=== PATIENT | male | born 1990 | race African-American/Black ===

== ENCOUNTER 2017-02-25 09:32 | Emergency (ER) | payer MEDICAID ==
[~2017-02-25] VITALS: Ht 185.4 cm; Wt 75.0 kg
[~2017-02-25 09:32] MED LIST: MOBI15TA PO
[2017-02-25 09:37] VITALS: BP 134/73; PULSE 75; RESP 14; TEMP 98.3; O2SAT 100
[2017-02-25] MEDS ORDERED: ACYC200C66 PO (10:30)
--- NOTE | 2017-02-25 10:30 | PD ---
HPI Chief Complaint: Complaint Time Seen by Provider: 10:25 Travel History International Travel<30 days: No Contact w/Intl Traveler<30days: No Traveled to known affect area: No History of Present Illness HPI 26-year-old male presents to the emergency Department with complaint of a blister appearing bump to his penis that he noticed yesterday. Denies penile drainage, testicular or penile pain or swelling. Reports pain to the area of the lesion. Denies dysuria, urgency, frequency. Denies abdominal pain, nausea , vomiting, fever. No known exposure to STDs or STI's. Engages in unprotected sexual intercourse. Has not taken any medications or tried any treatments to relieve the symptoms. No known allergies. Has no other medical complaints. No other modifying factors or associated signs and symptoms. PFSH Past Medical History Hx Anticoagulant Therapy: No Cardiovascular Problems: No Chemotherapy: No Cerebrovascular Accident: No Diabetes: No Patient Takes Glucophage: No Diminished Hearing: No Headaches: Yes Kidney Stones: Yes Medical other: Yes (bronchitis) Immunizations Current: No Tetanus Vaccination: < 5 Years ?: Not Past Surgical History Surgical History: No Previous Surgery Hysterectomy: No Other Surgery: Yes (circumcision) Social History Alcohol Use: Yes (rare) Tobacco Use: No Substance Use: No Allergies-Medications (Allergen,Severity, Reaction): Coded Allergies: No Known Allergies (Verified , 07/03/16) Reported Meds & Prescriptions Reported Meds & Active Scripts Active Acyclovir 200 Mg Cap 200 Mg PO 5 TIMES A DAY 10 Days Review of Systems Except as stated in HPI: all other systems reviewed are Neg Physical Exam Narrative GENERAL: Well-nourished, well-developed male patient, in no acute distress SKIN: Warm and dry. HEAD: Atraumatic. Normocephalic. EYES: Pupils equal and round. ENT: Mucosa pink and moist. NECK: Trachea midline. No lymphadenopathy. CARDIOVASCULAR: Regular rate. RESPIRATORY: No accessory muscle use. GASTROINTESTINAL: Abdomen soft and nondisteneded; with tenderness at the umbilicus on palpation. Hepatic and splenic margins not palpable. Bowel sounds are active 4 quadrants. GENITOURINARY: Exam done in the presence of a nurse. Circumcised. Testes descended bilaterally without evidence of rotation. One, small scabbed lesion noted to the dorsal aspect of the distal shaft of the penis. No urethral discharge. MUSCULOSKELETAL: No obvious deformities. No clubbing. No cyanosis. No edema. NEUROLOGICAL: Awake and alert. Oriented 3. No obvious cranial nerve deficits. Motor grossly within normal limits. Normal speech. Moves all extremities. 5/5 strength to all extremities. PSYCHIATRIC: Appropriate mood and affect; insight and judgment normal. Data Data Last Documented VS Vital Signs Date Time Temp Pulse Resp B/P Pulse Ox O2 Delivery O2 Flow Rate FiO2 02/25/17 09:37 98.3 75 14 134/73 100 MDM Medical Decision Making Medical Screen Exam Complete: Yes Emergency Medical Condition: Yes Medical Record Reviewed: Yes Differential Diagnosis Genital herpes, syphilis, abrasion of the penis Narrative Course 26-year-old male with a lesion to the penis that appears to be consistent with genital herpes. He denies penile discharge or dysuria. Instructed patient to follow up at the [facility], primary care provider, or health department for further testing and evaluation. Acyclovir prescribed for home. Patient verbalizes understanding and agreement with treatment plan. Patient is medically cleared and stable for discharge. Discussed reasons to return to the emergency department. Instructed patient to follow up with primary care provider. Patient agrees with treatment plan. The patients vital signs are stable and the patient is stable for outpatient follow-up and treatment. Patient discharged home, stable and in no acute distress. Diagnosis Primary Impression: Lesion of penis Referrals: [facility] Primary Care Physician Patient Instructions: General Instructions, Genital Herpes Simplex (ED), Sexually Transmitted Diseases (ED) Departure Forms: Tests/Procedures, Work Release Enter return to work date: February 25, 2017 Additional Instructions: Avoid sexual activity until you follow up with your primary care provider Avoid sexual activity while genital sores exist Inform all sexual partners within the past 3-6 months that they need to be evaluated and treated Use condoms every time you have sex Follow-up with primary care provider, [facility] or health department for further treatment and evaluation Return to the emergency department immediately with worsening of symptoms Med/Other Pt SpecificInfo: Prescription(s) given Scripts Acyclovir 200 Mg [id number] Mg PO 5 TIMES A DAY 10 Days Ref 0 Prov:Adilene Parker 02/25/17 Disposition: 01 DISCHARGE HOME Condition: Stable Adilene Parker February 25, 2017 10:30
== END 2017-02-25 10:48 | disposition home or self-care (01) ==
LOC: NEPK 09:32
DX: N48.89 Other specified disorders of penis (principal); Z87.442 Personal history of urinary calculi
CPT/HCPCS: 99283

== ENCOUNTER 2018-03-08 22:08 | Emergency (ER) | payer SELFPAY ==
[~2018-03-08 22:08] MED LIST changes: +ACYC200C66 PO; -MOBI15TA PO
[2018-03-08 22:32] VITALS: BP 126/77; PULSE 67; RESP 16; TEMP 98.4; O2SAT 99
[2018-03-08] MEDS ORDERED: BACT800T5 PO (23:58)
[2018-03-09] MEDS ORDERED: SULFAMETHOXAZOLE-TRIMETHOPRIM DS 800-160 MG TAB PO ONE
--- NOTE | 2018-03-09 00:01 | PD ---
HPI Chief Complaint: Skin Problem Time Seen by Provider: 23:53 Travel History International Travel<30 days: No Contact w/Intl Traveler<30days: No Traveled to known affect area: No History of Present Illness HPI 27-year-old male presents emergency department with complaints of a insect bite to his left volar forearm. He states that in the last 3 days it has become increasingly red, swollen. It has opened and drained. Symptoms are mild. No fever chills. No nausea vomiting. Exacerbated by bite. No alleviating factors. PFSH Past Medical History Medical History: Denies Significant Hx Hx Anticoagulant Therapy: No Cardiovascular Problems: No Chemotherapy: No Cerebrovascular Accident: No Diabetes: No Diminished Hearing: No Headaches: Yes Kidney Stones: Yes Immunizations Current: No Past Surgical History Surgical History: No Previous Surgery Hysterectomy: No Other Surgery: Yes (circumcision) Social History Alcohol Use: Yes Tobacco Use: No Substance Use: No Allergies-Medications (Allergen,Severity, Reaction): Coded Allergies: No Known Allergies (Verified Adverse Reaction, Unknown, 03/08/18) Reported Meds & Prescriptions Reported Meds & Active Scripts Active Bactrim DS (Sulfamethoxazole-Trimethoprim) 800-160 Mg Tab 1 Tab PO BID Review of Systems General / Constitutional: No: Fever Eyes: No: Visual changes HENT: No: Headaches Cardiovascular: No: Chest Pain or Discomfort Respiratory: No: Shortness of Breath Gastrointestinal: No: Abdominal Pain Genitourinary: No: Dysuria Musculoskeletal: No: Pain Skin: Positive Rash, Positive Lesions Neurologic: No: Weakness Psychiatric: No: Depression Endocrine: No: Polydipsia Hematologic/Lymphatic: No: Easy Bruising Physical Exam Narrative GENERAL: This is a well-nourished, well-developed patient, in no apparent distress. SKIN: No rashes, ecchymoses or lesions. Warm and dry. HEAD: Atraumatic. Normocephalic. EYES: PERRL, EOMI, no discharge or injection. No scleral icterus. EARS: Clear NOSE: Nasal turbinates appear normal. THROAT: Mucosa pink and moist. Airway patent. NECK: Trachea midline. supple, moves head freely. LUNGS: Clear to auscultation. CV: Regular in rhythm. ABDOMEN: Soft nontender. EXT: No clubbing cyanosis or edema. Patient has an 2 x 2Centimeter area of erythema with an open draining abscess centrally to the left volar forearm. There is no fluctuance or pointing. The skin is somewhat indurated. No lymphangitis. Data Data Last Documented VS Vital Signs Date Time Temp Pulse Resp B/P (MAP) Pulse Ox O2 Delivery O2 Flow Rate FiO2 03/08/18 22:32 98.4 67 16 126/77 (93) 99 Orders Orders Ed Discharge Order (03/08/18 23:56) Sulfamet-Trimeth Ds 800-160 Mg (Bactrim (03/09/18 00:00) MDM Medical Decision Making Medical Screen Exam Complete: Yes Emergency Medical Condition: Yes Medical Record Reviewed: Yes Differential Diagnosis MDM: High Differential diagnoses: Abscess, folliculitis, cellulitis, lymphangitis, abrasion, contact dermatitis Narrative Course Patient given Bactrim DS. This is left forearm abscess Diagnosis Primary Impression: Left forearm abscess Referrals: [facility] 1 week Patient Instructions: General Instructions Additional Instructions: Rest. Elevation. keep clean and dry. Warm compresses. Daily wound care with soap, water and Neosporin. Three Advil every 6 hours. Bactrim DS. Follow-up with a primary care doctor in one week. Return to the ER for any problems. Med/Other Pt SpecificInfo: Prescription(s) given, Wound Care Scripts Sulfamethoxazole-Trimethoprim (Bactrim DS) 800-160 Mg Tab 1 TAB PO BID for Infection, #14 TAB 0 Refills Prov: Promise Pena DO 03/08/18 Disposition: 01 DISCHARGE HOME Condition: Stable Titus Flores Mar 09, 2018 00:01
== END 2018-03-09 00:15 | disposition home or self-care (01) ==
LOC: NEPD 22:08
DX: L02.414 Cutaneous abscess of left upper limb (principal)
CPT/HCPCS: 99283